=== PATIENT | female | born 1990 | race American Indian/Alaskan Native ===

== ENCOUNTER 2017-09-08 06:45 | Day surgery (SDC) | payer OTHER ==
[2017-09-08] MEDS ORDERED: Propofol 10 mg/ml Inj (20 ML) ONE (08:44)
[2017-09-08] MEDS ORDERED: Lidocaine Hydrochloride 5 ML INJ ONE (08:59)
[2017-09-08 09:33] VITALS: O2SAT 100
[2017-09-08 09:45] VITALS: TEMP 98.4
[2017-09-08 09:52] VITALS: BP 120/80; PULSE 66; RESP 12
== END 2017-09-08 10:00 | disposition home or self-care (01) ==
LOC: C.ENDO 06:45
PROVIDERS: ATTEND Internal Medicine
DX: K29.70 Gastritis, unspecified, without bleeding (principal); R13.10 Dysphagia, unspecified; K44.9 Diaphragmatic hernia without obstruction or gangrene
CPT/HCPCS: 43239; 84703; 88305; J2704

== ENCOUNTER 2018-05-13 17:19 | Emergency (ER) | payer MEDICAID, OTHER ==
[2018-05-13 17:30] VITALS: BP 133/84; PULSE 89; RESP 16; TEMP 99.6; O2SAT 99
[2018-05-13] MEDS ORDERED: Albuterol-Ipratrop 3 mg / 0.5 (3 ml) UD INH STA (17:53)
[2018-05-13] MEDS ORDERED: Albuterol-Ipratrop 3 mg / 0.5 (3 ml) UD ONE (18:07)
--- NOTE | 2018-05-13 19:05 | C.PDOC ---
History Of Present Illness 35-year-old female, presents to the emergency department with complaints of cough and congestion ongoing for the past five days. Patient is a smoker. States she has a (+)hx of bronchitis, with similar symptoms last year, when she was given an inhaler. Pt reports using it with no relief, prompting visit. Denies nausea/vomiting, fever, chills, dizziness, or any other associated symptoms. No other complaints at this time. Time Seen by Provider: 05/13/18 17:32 Chief Complaint (Nursing): Cough, Cold, Congestion History Per: Patient History/Exam Limitations: no limitations Onset/Duration Of Symptoms: Days Severity: Moderate Past Medical History Reviewed: Historical Data, Nursing Documentation, Vital Signs Vital Signs: Last Vital Signs Temp 99.6 F 05/13/18 17:25 Pulse 89 05/13/18 17:25 Resp 16 05/13/18 17:25 BP 133/84 05/13/18 17:25 Pulse Ox 99 05/13/18 19:06 - Medical History PMH: Hypercholesterolemia (TAKING OMEGA-2, DOES NOT EAT RED MEAT OR WHITE RICE/ BREAD), Sexually Transmitted Disease Denies: HTN Family History: States: No Known Family Hx - Social History Hx Tobacco Use: Yes Hx Alcohol Use: No Hx Substance Use: No - Immunization History Hx Tetanus Toxoid Vaccination: Yes Hx Influenza Vaccination: No Hx Pneumococcal Vaccination: No Review Of Systems Constitutional: Negative for: Fever, Chills Respiratory: Positive for: Shortness of Breath, Wheezing Gastrointestinal: Negative for: Vomiting Musculoskeletal: Negative for: Back Pain Skin: Negative for: Rash Neurological: Negative for: Weakness, Numbness Physical Exam - Physical Exam Appears: Non-toxic, No Acute Distress Skin: Normal Color, Warm, Dry, No Rash Head: Atraumatic, Normacephalic Eye(s): bilateral: Normal Inspection Ear(s): Bilateral: Normal Nose: Normal Oral Mucosa: Moist Lips: Normal Appearing Neck: Normal ROM Chest: Symmetrical Cardiovascular: Rhythm Regular, No Murmur Respiratory: No Accessory Muscle Use, Wheezing (BL SCANT) Gastrointestinal/Abdominal: Soft, No Tenderness Extremity: Normal ROM, No Deformity, No Swelling Neurological/Psych: Oriented x3, Normal Speech ED Course And Treatment O2 Sat by Pulse Oximetry: 99 (RA) Pulse Ox Interpretation: Normal Disposition Counseled Patient/Family Regarding: Smoking Cessation (for 8 minutes) - Disposition Referrals: Fisher,No I, MD [Staff Provider] - Disposition: HOME/ ROUTINE Disposition Time: 19:03 Condition: GOOD Additional Instructions: Follow up with the medical doctor within 1-2 days. Return if worsened. Prescriptions: Albuterol HFA [Ventolin HFA 90 mcg/actuation (8 g)] 1 puff IH Q6 #100 puff Benzonatate [Tessalon Perles] 100 mg PO TID PRN #21 sgl PRN Reason: Cough Loratadine [Claritin] 10 mg PO DAILY #10 tab predniSONE [Prednisone] 20 mg PO BID #10 tab Spacer, Inhalation [Aerochamber] 1 dev IH Q4 #1 dev Instructions: Acute Bronchitis Forms: [facility] (Greek) - Clinical Impression Clinical Impression: Bronchitis - Scribe Statement The provider has reviewed the documentation as recorded by the Scribe (Carito Alberto) All medical record entries made by the Scribe were at my direction and personally dictated by me. I have reviewed the chart and agree that the record accurately reflects my personal performance of the history, physical exam, medical decision making, and the department course for this patient. I have also personally directed, reviewed, and agree with the discharge instructions and disposition.
--- NOTE | 2018-05-14 09:27 | RAD ---
HISTORY: cough, rhonchi COMPARISON: Comparison chest dated 05/03/2016 TECHNIQUE: Chest PA and lateral FINDINGS: LUNGS: Poor inspiration with low lung volumes, crowded bronchovascular markings and mild bibasilar atelectasis. PLEURA: No significant pleural effusion identified. No pneumothorax apparent. CARDIOVASCULAR: Normal. OSSEOUS STRUCTURES: No significant abnormalities. VISUALIZED UPPER ABDOMEN: Normal. OTHER FINDINGS: None. IMPRESSION: Poor inspiration with low lung volumes, crowded bronchovascular markings and mild bibasilar atelectasis.
== END 2018-05-13 19:17 | disposition home or self-care (01) ==
LOC: C.ER 17:19
DX: J40 Bronchitis, not specified as acute or chronic (principal); F17.210 Nicotine dependence, cigarettes, uncomplicated

== ENCOUNTER 2019-03-26 09:31 | Emergency (ER) | payer OTHER ==
[2019-03-26 10:06] VITALS: O2SAT 98
--- NOTE | 2019-03-26 10:34 | C.PDOC ---
History Of Present Illness 29 y/o female,w/PMhx of sciatica, presents to the ER complaining of right upper chest and shoulder pain which has been present for the past few days. Patient states that she took Tylenol for the pain. Patient notes that she takes Flexeril sometimes at home but she did not take any for the current episode of pain. 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 Patient notes that he has PMD in [facility] in [place]. Chief Complaint (Nursing): Chest Pain History Per: Patient History/Exam Limitations: no limitations Onset/Duration Of Symptoms: Days Current Symptoms Are (Timing): Still Present Severity: Moderate Past Medical History Reviewed: Historical Data, Nursing Documentation, Vital Signs Vital Signs: Last Vital Signs Temp 99.1 F 03/26/19 09:59 Pulse 86 03/26/19 09:59 Resp 18 03/26/19 09:59 BP 117/77 03/26/19 09:59 Pulse Ox 98 03/26/19 09:59 Primary Care Provider: FAMILY PROVIDER,NO - Medical History PMH: Hypercholesterolemia (TAKING OMEGA-2, DOES NOT EAT RED MEAT OR WHITE RICE/BREAD), Sexually Transmitted Disease Denies: Asthma, Diabetes, HTN, Chronic Kidney Disease Other Surgeries: Hx of surgeries Family History: States: No Known Family Hx - Social History Hx Tobacco Use: Yes Hx Alcohol Use: Yes Hx Substance Use: No - Immunization History Hx Tetanus Toxoid Vaccination: Yes Hx Influenza Vaccination: No Hx Pneumococcal Vaccination: No Review Of Systems Except As Marked, All Systems Reviewed And Found Negative. Constitutional: Negative for: Fever, Chills Cardiovascular: Positive for: Chest Pain Respiratory: Negative for: Cough, Shortness of Breath Musculoskeletal: Positive for: Shoulder Pain Neurological: Negative for: Headache, Dizziness Physical Exam - Physical Exam Appears: Non-toxic, No Acute Distress Skin: Normal Color, Warm, Dry Head: Atraumatic, Normacephalic Eye(s): bilateral: Normal Inspection Nose: Normal Oral Mucosa: Moist Neck: Supple, Other Chest: Symmetrical, Tenderness (reproducible tenderness to right upper chest wall) Cardiovascular: Rhythm Regular Respiratory: Normal Breath Sounds, No Rales, No Rhonchi, No Wheezing Extremity: Normal ROM, Tenderness (tenderness along the right trapezius), No Swelling Pulses: Left Brachial: Normal, Right Brachial: Normal Neurological/Psych: Oriented x3, Normal Speech ED Course And Treatment O2 Sat by Pulse Oximetry: 98 (RA) Pulse Ox Interpretation: Normal Disposition Counseled Patient/Family Regarding: Diagnosis, Need For Followup - Disposition Disposition: HOME/ ROUTINE Disposition Time: 10:32 Condition: GOOD Additional Instructions: JEFFERY SZYMANSKI, thank you for letting us take care of you today. Your provider was Olga Uriostegui MD and you were treated for CHEST PAIN. The emergency medical care you received today was directed at your acute symptoms. If you were prescribed any medication, please fill it and take as directed. It may take several days for your symptoms to resolve. Return to the Emergency Department if your symptoms worsen, do not improve, or if you have any other problems. Please contact your doctor for a follow up visit in 1-2 days. Bring any paperwork you were given at discharge with you along with any medications you are taking to your follow up visit. Our treatment cannot replace ongoing medical care by a primary care provider outside of the emergency department. Thank you for allowing the [facility] team to be part of your care today. Prescriptions: Naproxen [Naprosyn] 500 mg PO BID PRN #30 tablet PRN Reason: Pain, Moderate (4-7) Instructions: Muscle and Bone Pain (DC) Forms: General Discharge Instructions, [facility] (Croatian), Work Excuse - POA Present On Arrival: None - Clinical Impression Clinical Impression: Musculoskeletal pain - Scribe Statement The provider has reviewed the documentation as recorded by the Karina Fuchs Provider Attestation: All medical record entries made by the Karina were at my direction and personally dictated by me. I have reviewed the chart and agree that the record accurately reflects my personal performance of the history, physical exam, medical decision making, and the department course for this patient. I have also personally directed, reviewed, and agree with the discharge instructions and disposition.
[2019-03-26 10:38] VITALS: BP 124/79; PULSE 71; RESP 20; TEMP 99
--- NOTE | 2019-03-28 00:58 | CARD ---
APPROVED REPORT Date of service: 03/26/2019 EKG Measurement Heart [id number] <Conclusion> Normal sinus rhythm Nonspecific T wave abnormality Abnormal ECG
== END 2019-03-26 10:45 | disposition home or self-care (01) ==
LOC: C.ER 09:31
DX: M79.18 Myalgia, other site (principal)